=== PATIENT | female | born 1970 | race Caucasian/White ===

== ENCOUNTER 2019-09-29 14:09 | Outpatient (CLI) | payer OTHER ==
--- NOTE | 2019-09-29 15:15 | ULT ---
FOCUSED ULTRASOUND LEFT BREAST: DATE: 09/29/2019. HISTORY: Oval mass within medial left breast posteriorly on diagnostic mammography. FINDINGS: Focused ultrasound at the 9:30 position of the left breast approximately 10 cm from the nipple demons trates a lobulated hypoechoic lesion measuring 1.0 x 0.4 cm with no internal blood flow or shadowing. This likely represents a cyst, but no increased through transmission could be documented on this ex amination. IMPRESSION: BI-RADS 3 - probably benign findings. Hypoechoic lesion in the left breast suggests a mildly complex cyst. Recommend a followup ultrasound of the left breast in 6 months. Results and recommendation for followup imaging discussed with the patient at the time of interpretat ion. POS: OFF
--- NOTE | 2019-09-29 15:25 | MMO ---
Bilateral MAMMO Bilat Diag [facility]. CLINICAL HISTORY: Patient is 49 years old and is seen for diagnostic exam and pain in the right breast. The patient has the following family history of breast cancer: mother, at age 40, malignant (generic). The patient has no personal history of cancer. VIEWS: The views performed were: bilateral craniocaudal with tomosynthesis; bilateral mediolateral oblique with tomosynthesis; and bilateral mediolateral with tomosynthesis. FILMS COMPARED: The present examination has been compared to a prior imaging study performed at [facility] on 09/29/2019. This study has been interpreted with the assistance of computer-aided detection. MAMMOGRAM FINDINGS: There are scattered fibroglandular densities. There is an oval mass measuring 10 millimeters seen in the inner region of the left breast. Ultrasound reveals a probably benign hypoechoic lesion. Recommend follow up ultrasound of the left breast in 6 months. In the right breast, there are no suspicious masses, calcifications or areas of architectural distortion. IMPRESSION: MASS IN THE LEFT BREAST IS PROBABLY BENIGN. FOLLOW-UP IN 6 MONTHS IS RECOMMENDED. THE RESULTS OF THIS EXAM WERE SENT TO THE PATIENT. ACR BI-RADS Category 3 - Probably benign finding - short interval follow-up suggested. [facility] will notify the patient of the need for additional imaging services. MAMMOGRAPHY NOTE: 1. A negative mammogram report should not delay a biopsy if a dominant of clinically suspicious mass is present. 2. Approximately 10% to 15% of breast cancers are not detected by mammography. 3. Adenosis and dense breasts may obscure an underlying neoplasm. Reported by: DARIO ALEMAN MD Electonically Signed: [id number]
== END 2019-09-29 14:10 | disposition home or self-care (01) ==
LOC: BICMAMMO 14:09
PROVIDERS: ATTEND Nurse Practitioner Family
DX: N64.4 Mastodynia (principal); Z80.3 Family history of malignant neoplasm of breast; N63.20 Unspecified lump in the left breast, unspecified quadrant
CPT/HCPCS: 77066; G0279

== ENCOUNTER 2021-11-11 14:45 | Outpatient (CLI) | payer BC | END 2021-11-11 14:46 | disposition home or self-care (01) | LOC: BICMAMMO 14:45 | PROVIDERS: ATTEND Nurse Practitioner Family | DX: R92.8 Other abnormal and inconclusive findings on diagnostic imaging of breast (principal) | CPT/HCPCS: 77066; G0279 ==

== ENCOUNTER 2023-09-12 15:33 | Emergency (ER) | payer BC ==
[2023-09-12 16:27] LABS: #Basophils 0.1 thou/uL (0.0-0.2); #Eosinphils 0.1 thou/uL (0.0-0.7); #Monocytes 0.8 thou/uL (0.11-0.59); #Neutrophils 3.4 thou/uL (1.40-6.50); %Basophils 0.9 % (0.0-1.0); %Eosinophils 1.9 % (0.0-10.0); %Lymphocytes 31.1 % (21.0-51.0); %Monocytes 12.4 % (0.0-10.0); %Neutrophils 53.5 % (42.0-75.0); Hematocrit 39.5 % (36.0-47.0); Hemoglobin 13.1 g/dL (12.0-16.0); Mean Corpuscular HGB CONC 33.2 g/dL (32.0-36.0); Mean Corpuscular Hemoglobin 30.1 pg (27.0-31.0); Mean Corpuscular Volume 90.8 fl (78.0-98.0); Platelet Count 284 10x3/uL (130-400); RBC Distribution Width 13.6 % (11.5-14.5); Red Blood Cell (RBC) Count 4.35 mill/uL (4.20-5.40); White Blood Cell (WBC) Count 6.4 10x3/uL (4.8-10.8)
[2023-09-12] MEDS ORDERED: Aspirin Chewable 81 MG TAB ONE (16:42)
[2023-09-12 16:52] LABS: ALT (SGPT) 39 U/L (8-55); AST (SGOT) 40 U/L (5-34); Albumin 4.5 g/dL (3.5-5.0); Alkaline Phosphatase 97 U/L (40-110); Anion Gap 15 mmol/L (10-20); BUN (Urea Nitrogen) 17 mg/dL (9.8-20.1); Bilirubin, Total 0.5 mg/dL (0.2-1.2); Calc. Creatinine Clearance 0 mL/min (70-130); Calcium 9.4 mg/dL (7.8-10.44); Carbon Dioxide 24 mmol/L (22-29); Chloride 105 mmol/L (98-107); Estimated GFR 67; Globulin 2.9 g/dL (2.4-3.5); Glucose 104 mg/dL (70-105); Protein, Total 7.4 g/dL (6.0-8.3); Sodium 140 mmol/L (136-145)
[2023-09-12 16:53] LABS: Troponin I Less than 0.010 ng/mL (< 0.028)
[2023-09-12] MEDS ORDERED: Ketorolac Tromethamine 30 MG/ML VIAL ONE (18:00)
== END 2023-09-12 18:28 | disposition home or self-care (01) ==
LOC: ERS 15:33
DX: R20.0 Anesthesia of skin (principal)
CPT/HCPCS: 36415; 71045; 80053; 84484; 85025; 93005; 96374; J1885